=== PATIENT | male | born 1945 | race Caucasian/White ===

== ENCOUNTER 2022-03-02 08:06 | Outpatient (CLI) | payer MEDICARE, SELFPAY ==
--- NOTE | ~2022-03-02 | NM_ITS ---
Whole-body bone scan: History: Pelvic bone lesion. Radiopharmaceutical: 25.1 mCi of technetium 99m MDP was administered intravenously. COMPARISON: No relevant comparison studies are available Procedure: Three hour delayed anterior and posterior whole-body bone scan was performed. Findings: Questionable minimal increased uptake in the right ischium, seen on posterior views. There are 3 focal areas of increased uptake in the lower right ribs with linear orientation, most compatibl e rib fractures. There is extensive, avid increased uptake in the proximal right humerus and right hu meral shaft, as well as probably at the right glenoid. Impression: Questionable minimal increased uptake in the right ischium, as detailed above, nonspecific. Correlati on with any relevant clinical history or other imaging studies advised given provided history of pelv ic bone lesion. 3 linearly oriented focal areas of increased uptake in the lower right ribs, most consistent with rig ht rib fractures. Extensive, elevated increased uptake in the right humerus and right glenoid. This is probably related to provided history of rotator cuff surgery 3 weeks ago. Reviewed, dictated and finalized at location [] [facility] Impression: Questionable minimal increased uptake in the right ischium, as detailed above, nonspecific. Correlation with any relevant clinical history or other imaging st udies advised given provided history of pelvic bone lesion. 3 linearly oriented focal areas of increased uptake in the lower right ribs, mo st consistent with right rib fractures. Extensive, elevated increased uptake in the right humerus and right glenoid. Th is is probably related to provided history of rotator cuff surgery 3 weeks ago.
== END 2022-03-02 08:07 | disposition home or self-care (01) ==
PROVIDERS: PCP Internal Medicine; Visit Provider Nurse Practitioner Adult Health
DX: M89.9 Disorder of bone, unspecified (principal)
CPT/HCPCS: 78306; A9561